=== PATIENT | male | born 1975 | race Caucasian/White ===

== ENCOUNTER 2018-08-24 16:14 | Emergency (ER) | payer OTHER ==
[~2018-08-24] VITALS: Ht 182.9 cm; Wt 108.9 kg
[2018-08-24 16:20] VITALS: BP_SYST 133
[2018-08-24 17:52] LABS: BILIRUBIN,URINE NEGATIVE (NEGATIVE); CLARITY/URINE CLEAR (CLEAR); COLOR,URINE YELLOW (YELLOW); GLUCOSE,URINE NEGATIVE (NEGATIVE); KETONES,URINE NEGATIVE (NEGATIVE); LEUKOCYTE ESTERASE ,URINE NEGATIVE (NEGATIVE); NITRITE, URINE NEGATIVE (NEGATIVE); PH,URINE 5.5 (5.0-8.0); PROTEIN URINE NEGATIVE (NEGATIVE); UROBILINOGEN,URINE 0.2 (0.2-1.0)
[2018-08-24 17:55] LABS: BLOOD, URINE TRACE (NEGATIVE)
[2018-08-24 17:57] LABS: BASOPHILS % (AUTO) 0.5 % (0.0-2.0); EOSINOPHILS # (AUTO) 0.2 K/uL (0.0-0.4); EOSINOPHILS % (AUTO) 1.6 % (0.0-4.0); HEMATOCRIT 48.4 % (36-54); HEMOGLOBIN 16.8 g/dL (14.0-18.0); LYMPHOCYTES # (AUTO) 1.7 K/uL (1.0-5.5); LYMPHOCYTES % (AUTO) 17.4 % (20.5-51.5); MEAN CORPUSCULAR HEMOGLOBIN 34 pg (27-31); MEAN CORPUSCULAR HGB CONC 35 % (32-36); MEAN CORPUSCULAR VOLUME 97 fL (79.0-98.0); MONOCYTES # (AUTO) 0.6 K/uL (0.0-1.0); MONOCYTES % (AUTO) 6.4 % (1.7-9.3); NEUTROPHILS # (AUTO) 7.1 K/uL (1.8-7.7); NEUTROPHILS % (AUTO) 74.1 % (40.0-70.0); PLATELET COUNT (AUTO) 282 K/uL (130-430); RED BLOOD CELL COUNT(AUTO) 4.99 MIL/uL (4.2-6.2); RED CELL DISTRIBUTION WIDTH 12.4 % (9.0-15.0); WHITE BLOOD COUNT (AUTO) 9.6 K/uL (4.8-10.8)
[2018-08-24 18:03] LABS: CREATININE 0.94 mg/dL (0.55-1.30)
[2018-08-24 18:05] LABS: PROTHROMBIN TIME 9.8 SECS (9.5-12.5)
[2018-08-24 18:06] LABS: BACTERIA,URINE FEW /HPF (None Seen); WBC,URINE 0-3 /HPF (0-3)
[2018-08-24 18:07] LABS: ALBUMIN 3.7 g/dL (3.4-4.8); TOTAL BILIRUBIN 0.5 mg/dL (0.0-1.0)
[2018-08-24] MEDS ORDERED: KETOROLAC TROMETHAMINE 30 MG VIAL IM ONE (21:30)
[2018-08-24 22:00] VITALS: BP_SYST 133
== END 2018-08-24 22:00 | disposition home or self-care (01) ==
LOC: SED 16:14
DX: K80.20 Calculus of gallbladder without cholecystitis without obstruction (principal); R03.0 Elevated blood-pressure reading, without diagnosis of hypertension
CPT/HCPCS: 36415; 71045; 74176; 76700; 80053; 81000; 83605; 83690; 85025; 85610; 87040; 93005; 96374; 99284; J1885

== ENCOUNTER 2018-08-25 09:18 | Inpatient (IN) | payer OTHER ==
[~2018-08-25] VITALS: Ht 182.9 cm; Wt 109.8 kg
[2018-08-25 09:18] VITALS: BP_SYST 136
--- NOTE | 2018-08-25 09:18 | NUR ---
BROUGHT BACK TO BED #6 AND TRIAGED. REPORT GIVEN TO SAUNDRA
--- NOTE | 2018-08-25 09:35 | NUR ---
PATIENT CAME IN COMPLAINING OF PAIN 01/04 THAT STARTED ABOUT 5 DAYS AGO. PAIN IS IN RIGHT UPPER ABD THAT RADIATES TO BACK. PATIENT WAS HERE YESTERDAY AND SENT HOME WITH [facility]. PATIENT STATES IT DID NOT HELP. PATIENT COMPLAINING OF NAUSEA BUT NO VOMITING. PATIENT STATES THEY TOLD HIM HE HAS GALL STONES BUT NO INFECTION. PATIENT ALERT AND ORIENTED X4.
--- NOTE | 2018-08-25 09:40 | NUR ---
# 20 gauge angiocath placed to RIGHT AC. Use of asceptic technique. Opsite placed over site. Blood return noted. Blood for lab drawn from site. Flushed with 10 cc of normal saline. No evidence of infiltration noted. Patient tolerated well.
--- NOTE | 2018-08-25 09:52 | NUR ---
ER Dr. MILNER at bedside examining patient.
--- NOTE | 2018-08-25 09:53 | NUR ---
DR MILNER AT BEDSIDE FOR EVALUATION
[2018-08-25] MEDS ORDERED: ONDANSETRON HCL 4 MG/2 ML VIAL IVP ONE (10:00)
[2018-08-25] MEDS ORDERED: MORPHINE 4 MG/ML INJ. SYRINGE IVP ONE (10:00)
[2018-08-25] MEDS ORDERED: NACL 0.9% 1,000 ML IV ONE ×2 (10:00→11:45)
[2018-08-25 10:09] LABS: BASOPHILS % (AUTO) 0.3 % (0.0-2.0); EOSINOPHILS # (AUTO) 0.1 K/uL (0.0-0.4); EOSINOPHILS % (AUTO) 0.6 % (0.0-4.0); HEMOGLOBIN 16.5 g/dL (14.0-18.0); LYMPHOCYTES # (AUTO) 1.2 K/uL (1.0-5.5); LYMPHOCYTES % (AUTO) 10.9 % (20.5-51.5); MEAN CORPUSCULAR HEMOGLOBIN 33 pg (27-31); MEAN CORPUSCULAR HGB CONC 34 % (32-36); MEAN CORPUSCULAR VOLUME 97 fL (79.0-98.0); MONOCYTES # (AUTO) 0.7 K/uL (0.0-1.0); MONOCYTES % (AUTO) 6.3 % (1.7-9.3); NEUTROPHILS # (AUTO) 9.1 K/uL (1.8-7.7); NEUTROPHILS % (AUTO) 81.9 % (40.0-70.0); PLATELET COUNT (AUTO) 298 K/uL (130-430); RED BLOOD CELL COUNT(AUTO) 4.95 MIL/uL (4.2-6.2); RED CELL DISTRIBUTION WIDTH 12.6 % (9.0-15.0); WHITE BLOOD COUNT (AUTO) 11.1 K/uL (4.8-10.8)
[2018-08-25 10:12] LABS: CREATININE 1.01 mg/dL (0.55-1.30); POTASSIUM 4.4 mmol/L (3.5-5.1)
[2018-08-25 10:17] LABS: ALBUMIN 3.9 g/dL (3.4-4.8); TOTAL BILIRUBIN 0.6 mg/dL (0.0-1.0)
--- NOTE | 2018-08-25 11:14 | NUR ---
PATIENT PACING IN ROOM AND CROUCHING DOWN IN SEVERE PAIN. MADE AWARE.
[2018-08-25] MEDS ORDERED: fentaNYL CITRATE/PF 100 MCG/2 ML AMP IVP ONE (11:15)
--- NOTE | 2018-08-25 11:35 | NUR ---
Patient will be admitted to care of dr Thompson. Admitted to med surge unit. Will go to room 124B. Belongings list completed. Summary report printed. Report will be given at bedside.
--- NOTE | 2018-08-25 11:41 | NUR ---
Medication reconciliation completed with information provided by patient. Any prior medication reconciliation on file was reviewed and corrected.
--- NOTE | 2018-08-25 11:44 | NUR ---
PATIENT STILL COMPLAINING OF SEVERE PAIN. DR PAUL.
[2018-08-25] MEDS ORDERED: HYDROmorphone 1 MG INJ. 1 MG/ML AMPUL IVP PRN (11:45)
[2018-08-25] MEDS ORDERED: HYDROmorphone 2 MG/ML VIAL IVP ONE (11:45)
[2018-08-25] MEDS ORDERED: HYDROmorphone 2 MG/ML VIAL ONE (12:07)
--- NOTE | 2018-08-25 12:25 | NUR ---
Transfered to [facility]. IV present no sign or symptom of infiltration.
--- NOTE | 2018-08-25 12:29 | NUR ---
ADMIT NOTE Received pt from ER to the floor with a diagnosis of abdominal pain. Admission process initiated. patient oriented to pain management, safety and call light-teach back done.
--- NOTE | 2018-08-25 12:30 | NUR ---
CONSULTATION PAGED/CALLED Reason for Consultation: [] abdominal pain Person Who was Notified: [] Terry. CARRINGTON's DIRECTOR SPOKE TO DR FRANK Consulting Physician: [] DR FRANK Tube Drawing Supervisor Specialty: [] GEN SURGEON Ordering Physician: [] DR MACDONALD
[2018-08-25 12:53] VITALS: BP_SYST 133
--- NOTE | 2018-08-25 13:10 | NUR ---
INITIAL NOTE RECEIVED PT IN BED, NO S/S OF DISTRESS OR SOB NOTED, PT HAS C/O PAIN 6/10 RIGHT LOWER ABD THAT RADIATES TO BACK. MADE PT AWARE THAT WE ARE WAITING FOR [employer] TO CALL US BACK TO SEE IF PT WILL HAVE TEST DONE TODAY. IV CATHETER PATENT, SALINE LOCK. BED AT LOWEST POSITION, CALL LIGHT WITHIN REACH, WILL CONTINUE TO MONITOR PT FOR ANY CHANGES. FALL AND SAFETY PRECAUTIONS IN PLACE.
--- NOTE | 2018-08-25 13:15 | NUR ---
DAKOTA GLEASON SPOKE WITH KARMA FROM [facility] AND SHE STATED THEY WILL DO THE HIDA SCAN TONIGHT AT 7PM. PER KARMA, PT TO HAVE ONE DOSE OF DILAUDID ONE MORE TIME BEFORE PROCEDURE.
[2018-08-25] MEDS: HYDROmorphone 2 MG/ML VIAL IVP PRN ×2 (13:20→22:02)
[2018-08-25] MEDS: D5NS 1,000 ML IV SCH (13:21)
--- NOTE | 2018-08-25 14:30 | NUR ---
ROUNDS PT IN BED, NO S/S OF DISTRESS OR SOB NOTED, PT HAS NO C/O PAIN AT THIS TIME, PT IN STABLE CONDITION, PT RESTING COMFORTABLY, WILL CONTINUE TO MONITOR PT FOR ANY CHANGES.
[2018-08-25] MEDS ORDERED: KETOROLAC TROMETHAMINE 30 MG VIAL IVP PRN (15:15)
--- NOTE | 2018-08-25 15:15 | NUR ---
NUCLEAR MED SPOKE WITH DANIELE FROM RADIOLOGY THAT SPOKE WITH KARMA ABOUT THE USE OF TORADOL FOR PAIN SINCE PT IS STILL HAVING PAIN, PER DANIELE IT IS NOT A NARCOTIC SO OK TO GIVE.
--- NOTE | 2018-08-25 15:19 | NUR ---
DR MONIKA RICHMOND MD. INFORMED OF PATIENT BEING IN SEVERE PAIN. ORDERED THE HIDA SCAN BUT BUT [facility] WANTS TO MANAGE PAIN. TORADOL IV ORDERED.
[2018-08-25] MEDS ORDERED: KETOROLAC TROMETHAMINE 30 MG VIAL ONE ×2 (15:27→18:55)
--- NOTE | 2018-08-25 16:05 | NUR ---
ROUNDS PT IN BED, NO S/S OF DISTRESS OR SOB NOTED, PT HAS NO C/O PAIN AT THIS TIME, PT IN STABLE CONDITION, PT RESTING COMFORTABLY, WILL CONTINUE TO MONITOR PT FOR ANY CHANGES. PT TALKING TO VISITORS.
[2018-08-25 16:51] VITALS: BP_SYST 147
--- NOTE | 2018-08-25 17:46 | NUR ---
GEN SURGEON DR FRANK WAS PAGED AGAIN, RE: PT HAS SEVERE PAIN. SPOKE TO FEDE.
--- NOTE | 2018-08-25 17:47 | NUR ---
CALL DR MONIKA BRADSHAW, AWAITING CALL BACK TO LET HIM KNOW THAT PATIENT IS HAVING A LOT OF ABD PAIN, AWAITING FOR THE HIDA SCAN AT 7 PM. Addendum: 08/25/18 at 1802 by Trinh Knight RN MD CALLED BACK AND GAVE NEW ORDERS FOR TORADOL 30 MG IVP X1 NOW. SPOKE WITH PT AND HE WILL HOLD OFF UNTIL HE CANT ANYMORE BECAUSE HE HAS THE HIDA SCAN AT 7 PM.
[2018-08-25] MEDS ORDERED: KETOROLAC TROMETHAMINE 30 MG VIAL IVP ONE (18:00)
--- NOTE | 2018-08-25 18:15 | NUR ---
CLOSING NOTE PT IN BED, NO S/S OF DISTRESS OR SOB NOTED, PT HAS C/O PAIN 6/10 RIGHT LOWER ABD THAT RADIATES TO BACK. MADE PT AWARE THAT WE ARE WAITING FOR HIDA SCAN TO COME PICK HIM UP AND HE HAS TORADOL X1 30 MP IVP WHEN NEEDED, PT STATED HE WILL CALL WHEN HE NEEDS IT. IV CATHETER PATENT, RUNNING FLUIDS ORDERED. BED AT LOWEST POSITION, CALL LIGHT WITHIN REACH, WILL ENDORSE CARE OF PT TO INCOMING NURSE. FALL AND SAFETY PRECAUTIONS IN PLACE.
--- NOTE | 2018-08-25 18:51 | NUR ---
PAIN MEDICATION ADMINISTERED TIMES ONE DOSE OF TORADOL 30MG IM FOR PAIN ORDERED. PT KNOWS THAT HE WILL HAVE HIDA SCAN AT 7 PM TONIGHT.
[2018-08-25 19:00] VITALS: BP_SYST 142
--- NOTE | 2018-08-25 19:00 | NUR ---
change of shift.pt.presents abdomen pain;layla had medicated the pt.toradol;30mg ivp.pt.is scheduled to submit to hida-scan;hida scan nsg is present;apprising us that the pt.is to be sent w/in 15mins.iv access iv fluids;on hold.
[2018-08-25 20:00] VITALS: BP_SYST 110; BP_SYST 142
--- NOTE | 2018-08-25 20:00 | NUR ---
pt.remains off the unit @this hour;2/t hida scan.
--- NOTE | 2018-08-25 20:30 | NUR ---
pt.had returned to the unit;post.hida-scan.
--- NOTE | 2018-08-25 21:00 | NUR ---
pt.removed from the unit;2/t 2nd part;hida scan per the tech. telephoned the sdch. i apprised that the pt,has submitted to the 2nd section of the hida-scan study.i have no results.@this hour. has ordered to call w/the results of the hida-scan.if the study is+:requires surgery:possible surgery in the am;08/26/18.
--- NOTE | 2018-08-25 22:26 | NUR ---
PAGED DR. MACDONALD (DR. VICENTE ISOLATION WASHER) REGARDING PATIENT YULISSA REHMAN FOR ORDERS.
--- NOTE | 2018-08-25 22:30 | NUR ---
returned the page.i have apprised of the pt's status;severe pain level.agitation/restless. nausea. had ordered dilaudid;2mg ivp q-3hrs;frequency changed.zofran;4mg ivp q-6hrs;nausea.ativan: 1mg ivp x1.i have apprised the pt.of the orders.
[2018-08-25] MEDS ORDERED: LORazepam 2 MG/ML VIAL IVP ONE (23:00)
[2018-08-25] MEDS ORDERED: ONDANSETRON HCL 4 MG/2 ML VIAL IM PRN (23:00)
--- NOTE | 2018-08-25 23:30 | NUR ---
i have administered ativan:1mg ivp.i have administered zofran:4mg ivp..
[2018-08-26] VITALS (7 sets, daily range): BP systolic 104–134
--- NOTE | 2018-08-26 | NUR ---
pt.assessed.v/s assessed.values w/in normal limits.pt.presents quiescent affect;calm,resting.arousable,. iv fluids infusing.general status stable.respiratory status stable.pt.capable to reposition self.call light/telephone placed w/in the reach of the pt.
[2018-08-26] MEDS: HYDROmorphone 2 MG/ML VIAL IVP PRN ×3 (00:27→12:02)
--- NOTE | 2018-08-26 00:30 | NUR ---
py.had requested medication;pain.i have administered dilaudid;2mg ivp.no additional requested posited@this hour. presented upon the ubntispoke w/the pt.i have presented the hida-scan results to .has order surgery in the am:0900a.08/26/18.labs ordered.
[2018-08-26] MEDS: D5NS 1,000 ML IV SCH ×2 (01:05→03:29)
--- NOTE | 2018-08-26 02:00 | NUR ---
pt.assessed.pt.presents quiescent affect;clam.somnolent,general status stable.respiratory status stable. pt.capable to reposition self.iv fluids infusing.cvall light/telephone w/in the reach of the pt.
--- NOTE | 2018-08-26 03:30 | NUR ---
pt.had requested medication;pain.i have administered dilaudid;2mg ivp.to f/u re;pain medication efficacy per pain mgx protocol.i have changed the iv fluids bag;d5/ns @75ml/hr.
--- NOTE | 2018-08-26 04:00 | NUR ---
pt.assessed.pt.presents quiescent affect;calm,somnolent.iv acces;intact;patent;iv fluids infusing. general status stable.respiratory status stable.pt.capable to reposition self.call light/telephone w/in the reach of the pt.
[2018-08-26 07:11] LABS: BASOPHILS % (AUTO) 0.2 % (0.0-2.0); EOSINOPHILS % (AUTO) 0.2 % (0.0-4.0); HEMATOCRIT 43.5 % (36-54); HEMOGLOBIN 14.9 g/dL (14.0-18.0); LYMPHOCYTES # (AUTO) 1.3 K/uL (1.0-5.5); LYMPHOCYTES % (AUTO) 9.8 % (20.5-51.5); MEAN CORPUSCULAR HEMOGLOBIN 33 pg (27-31); MEAN CORPUSCULAR HGB CONC 34 % (32-36); MEAN CORPUSCULAR VOLUME 97 fL (79.0-98.0); MONOCYTES # (AUTO) 1.2 K/uL (0.0-1.0); MONOCYTES % (AUTO) 8.6 % (1.7-9.3); NEUTROPHILS # (AUTO) 11.1 K/uL (1.8-7.7); NEUTROPHILS % (AUTO) 81.2 % (40.0-70.0); PLATELET COUNT (AUTO) 259 K/uL (130-430); RED BLOOD CELL COUNT(AUTO) 4.47 MIL/uL (4.2-6.2); RED CELL DISTRIBUTION WIDTH 12.4 % (9.0-15.0); WHITE BLOOD COUNT (AUTO) 13.6 K/uL (4.8-10.8)
[2018-08-26 07:14] LABS: CLARITY/URINE CLEAR (CLEAR); COLOR,URINE YELLOW (YELLOW); GLUCOSE,URINE NEGATIVE (NEGATIVE); PROTEIN URINE TRACE (NEGATIVE)
[2018-08-26 07:15] LABS: BILIRUBIN,URINE 1+ (NEGATIVE); BLOOD, URINE 1+ (NEGATIVE); KETONES,URINE TRACE (NEGATIVE); LEUKOCYTE ESTERASE ,URINE NEGATIVE (NEGATIVE); NITRITE, URINE NEGATIVE (NEGATIVE)
[2018-08-26 07:18] LABS: WBC,URINE 0-3 /HPF (0-3)
[2018-08-26 07:19] LABS: BACTERIA,URINE FEW /HPF (None Seen); MUCUS,URINE 1+ /LPF (None Seen)
[2018-08-26 07:30] LABS: PROTHROMBIN TIME 10.1 SECS (9.5-12.5)
--- NOTE | 2018-08-26 07:30 | NUR ---
Opening Note received bedside SBAR report from restaurant shift leader RN, patient resting in bed, no acute distress noted, patients family at bedside, educated patient on use of call light and asked to call for assistance, patient verbalized understanding, call light in reach, educted patient on use of bed alarm for patient safety, patient refusing bed alarm, bed in low and locked position.
[2018-08-26 07:39] LABS: CALCIUM 8.4 mg/dL (8.4-11.0); CREATININE 0.97 mg/dL (0.55-1.30)
[2018-08-26 07:40] LABS: ALBUMIN 3.1 g/dL (3.4-4.8); TOTAL BILIRUBIN 0.9 mg/dL (0.0-1.0)
--- NOTE | 2018-08-26 08:05 | NUR ---
Fever patient temp 102.6 oral, paged Dr. Alaniz workplace rehabilitation officer for Dr. Thompson for orders. Addendum: 08/26/18 at 0916 by Latanya Sebastian RN @ [phone] Dominguez, new orders received, verified with read back.
[2018-08-26] MEDS ORDERED: ACETAMINOPHEN 650 MG SUPP.RECT RC ONE (09:00)
--- NOTE | 2018-08-26 09:15 | NUR ---
to OR patient taken to OR via gurney, no acute distress noted, all belongings left with patients sister.
[2018-08-26] MEDS ORDERED: PIPERACILLIN/TAZOBACTAM 3.375 GM/ D5W 50 ML IV ONE ×2 (09:30)
[2018-08-26] MEDS ORDERED: fentaNYL CITRATE/PF 100 MCG/2 ML AMP IVP PRN ×2 (10:00)
[2018-08-26] MEDS ORDERED: ONDANSETRON HCL 4 MG/2 ML VIAL IVP PRN ×2 (10:00→11:00)
[2018-08-26] MEDS ORDERED: KETOROLAC TROMETHAMINE 30 MG VIAL IVP PRN (10:00)
--- NOTE | 2018-08-26 10:13 | NUR ---
CONSULTATION PAGED REASON FOR CONSULTATION:FEVER WAS CONSULT CALLED?Y PERSON WHO WAS NOTIFIED:HERRERA CONSULTING PHYSICIAN:ZOHRA YOUSIF ( SPRIGGER) BROOMMAKER SPECIALTY:ID BROOMMAKER PHONE NUMBER:[phone] REQUESTING PHYSICIAN:TANESHA CALI
--- NOTE | 2018-08-26 10:35 | NUR ---
Physician Rounds Rounds with Dr. Alaniz, informed him of patients temp 102.6, HR 102, and WBC 13.6, informed him that 650 tylenol was given before patient was taken to OR and that zosyn was ordered in OR, new antibiotic order received, verified with read back.
[2018-08-26] MEDS ORDERED: ACETAMINOPHEN 325 MG TABLET PO PRN (10:45)
[2018-08-26] MEDS ORDERED: SEVOFLURANE 15 MIN GAS INH ONE (10:55)
[2018-08-26] MEDS ORDERED: NS 1000 ML IV.SOLN IV ONE (10:55)
[2018-08-26] MEDS ORDERED: BUPIVACAINE /PF 0.5% 30 ML VIAL ONE (10:55)
[2018-08-26] MEDS ORDERED: MIDAZOLAM HCL 5 MG/ML VIAL (VERSED) IV ONE (10:55)
[2018-08-26] MEDS ORDERED: NS IRRIG SOLN 1000 ML IR ONE (10:55)
[2018-08-26] MEDS ORDERED: ROCURONIUM BROMIDE 10 MG/ML (ZEMURON) ONE (10:55)
[2018-08-26] MEDS ORDERED: PROPOFOL 200MG/ 20ML VIAL (DIPRIVAN) IV ONE (10:55)
[2018-08-26] MEDS ORDERED: LR 1,000 ML IV.SOLN IV ONE (10:55)
[2018-08-26] MEDS ORDERED: ONDANSETRON HCL 4 MG/2 ML VIAL ONE (10:55)
[2018-08-26] MEDS ORDERED: fentaNYL CITRATE/PF 100 MCG/2 ML AMP ONE (10:55)
[2018-08-26] MEDS ORDERED: BUPIVACAINE /EPINEPHRINE/PF 0.25% 30 ML VIAL INJ ONE (10:55)
[2018-08-26] MEDS ORDERED: KETOROLAC TROMETHAMINE 30 MG VIAL ONE (10:55)
[2018-08-26] MEDS ORDERED: LIDOCAINE 2%, 20 ML MDV ONE (10:55)
[2018-08-26] MEDS ORDERED: PHENYLEPHRINE HCL 10 MG/ML VIAL (NEOSYNEPHRINE) ONE (10:55)
[2018-08-26] MEDS ORDERED: HYDROcodone/ACETAMIN 5-325 MG TAB (NORCO/ VICODIN) PO PRN (11:00)
--- NOTE | 2018-08-26 11:56 | NUR ---
back from OR patient brought back to room from OR via gurney, no acute distress noted, respirations even and unlabored, patients family at the bedside.
[2018-08-26] MEDS: NACL 0.9% 1,000 ML IV SCH ×2 (12:11→20:46)
--- NOTE | 2018-08-26 12:16 | NUR ---
Pain Management/Medication patient complaint of pain, educated patient on use and side effects of PRN dilaudid including the potential for respiratory depression, patient verbalized understanding, tolerated medication administration well, medication administration witnessed by Patria MALDONADO, no acute distress noted, patient provided with clear liquid lunch tray, family at bedside.
--- NOTE | 2018-08-26 13:17 | NUR ---
RN Rounds patient resting in bed, patient reports pain is controlled, respirations even and unlabored, no acute distress noted, patients family at bedside.
[2018-08-26] MEDS: PIPERACILLIN/TAZO 3.375/DEX-IS 50 ML IV SCH ×2 (14:12→20:47)
--- NOTE | 2018-08-26 14:20 | NUR ---
Ambulated to bathroom non-slip footwear provided, assisted patient to ambulate to bathroom, steady gait noted, patient voided x1, assisted patient to ambulate back to bed, patient resting in bed, patient states that pain is controlled at this time, no acute distress noted.
--- NOTE | 2018-08-26 14:38 | NUR ---
DC Planning: updated pt's status to dayna Langford at [facility] # [phone], the pt had [facility] this am. faxing clinical info, FS, HP to # [phone] attn: goran Downing per request.
[2018-08-26] MEDS: HYDROmorphone 1 MG INJ. 1 MG/ML AMPUL IVP PRN ×3 (15:16→21:20)
--- NOTE | 2018-08-26 15:25 | NUR ---
Pain Management/Medication patient complaint of pain, educated patient on use and side effects of PRN pain medication, patient verbalized understanding, tolerated medication administration well, no acute distress noted, administration witnessed by Perla Flores, no additional needs at this time.
--- NOTE | 2018-08-26 15:55 | NUR ---
Patient went outside to smoke educated patient on risks of smoking, smoking cessation information provided, smoking waiver signed and in chart, patient verbalized understanding, patient went outside to smoke, accompanied by WELDER AND FITTER.
--- NOTE | 2018-08-26 16:10 | NUR ---
patient resting in bed patient back in bed, no acute distress noted, patients family at bedside.
--- NOTE | 2018-08-26 16:50 | NUR ---
Spoke with Physician spoke with Dr. Velasquez, informed him of WBC 13.6, temp earlier this morning of 102.6 and HR 102, informed him of current vital signs, new medication orders received, verified with read back, per Dr. Velasquez he will be in tonight or tomorrow to see the patient.
[2018-08-26] MEDS: ACETAMINOPHEN 325 MG TABLET PO PRN (18:30)
--- NOTE | 2018-08-26 19:11 | NUR ---
Closing Note bedside SBAR report given to receiving RN, patient resting in bed, no acute distress noted, surgical dressings to abdomen clean, dry, and intact, abdominal binder in place, educated patient on use of call light and asked to call for assistance, patient verbalized understanding, call light in reach, bed in low and locked position, care endorsed to date night sitter RN.
--- NOTE | 2018-08-26 19:30 | NUR ---
Initial note: Received report from dayshift RN. Patient is resting in bed, no distress. Breathing is even and unlabored on room air. IV site to right AC is patent benign, receiving IV fluids well. Temperature at this time is 99.7 F. Call light is with patient. Will continue monitoring.
[2018-08-26] MEDS: metroNIDAZOLE 500 mg/NS 100 ML IV SCH (21:20)
--- NOTE | 2018-08-26 21:24 | NUR ---
Pain: Patient is complaining of severe abdominal pain. Administered PRN Dilaudid 1 MG IVP via patient's right AC IV site. Education provided regarding indications and side effects, understanding verbalized. Will continue monitoring.
[2018-08-27] VITALS (7 sets, daily range): BP systolic 111–142
[2018-08-27] MEDS: HYDROmorphone 1 MG INJ. 1 MG/ML AMPUL IVP PRN ×8 (00:34→22:42)
[2018-08-27] MEDS: ACETAMINOPHEN 325 MG TABLET PO PRN ×4 (00:35→22:59)
--- NOTE | 2018-08-27 00:37 | NUR ---
Pain: Patient is awake, complaining of severe abdominal pain. PRN Dilaudid 1 MG IVP indicated. Administered medication via patient's right AC IV site. Will continue monitoring.
[2018-08-27] MEDS: PIPERACILLIN/TAZO 3.375/DEX-IS 50 ML IV SCH ×4 (03:54→21:31)
--- NOTE | 2018-08-27 03:54 | NUR ---
Pain: Patient is awake, complaining of pain 9/10 to abdomen. Administered PRN Dilaudid 1 MG to patient's right AC IV site. Will continue monitoring.
[2018-08-27 06:11] LABS: BASOPHILS % (AUTO) 0.3 % (0.0-2.0); EOSINOPHILS % (AUTO) 0.1 % (0.0-4.0); HEMATOCRIT 38.4 % (36-54); LYMPHOCYTES # (AUTO) 1.2 K/uL (1.0-5.5); MEAN CORPUSCULAR HEMOGLOBIN 33 pg (27-31); MEAN CORPUSCULAR HGB CONC 34 % (32-36); MEAN CORPUSCULAR VOLUME 99 fL (79.0-98.0); MONOCYTES % (AUTO) 8.4 % (1.7-9.3); NEUTROPHILS % (AUTO) 81.2 % (40.0-70.0); PLATELET COUNT (AUTO) 221 K/uL (130-430); RED BLOOD CELL COUNT(AUTO) 3.89 MIL/uL (4.2-6.2); RED CELL DISTRIBUTION WIDTH 12.3 % (9.0-15.0); WHITE BLOOD COUNT (AUTO) 12.3 K/uL (4.8-10.8)
[2018-08-27 06:36] LABS: ALBUMIN 2.6 g/dL (3.4-4.8); CALCIUM 7.9 mg/dL (8.4-11.0); CREATININE 1.08 mg/dL (0.55-1.30); POTASSIUM 3.8 mmol/L (3.5-5.1); TOTAL BILIRUBIN 1.1 mg/dL (0.0-1.0)
--- NOTE | 2018-08-27 06:59 | NUR ---
Closing note: Patient is awake in bed. Administered PRN Dilaudid 1 MG for abdominal pain 9/10 and PRN Tylenol 650 MG for fever 100.8 F. IV fluids infusing as ordered, site is patent and benign. All needs met. Will endorse to carmen RN.
[2018-08-27] MEDS: NACL 0.9% 1,000 ML IV SCH ×3 (07:01→22:38)
--- NOTE | 2018-08-27 07:25 | NUR ---
Opening note Patient resting in bed at this time, no complaints of pain, temp of 99.8. Ice packs provided. No SOB noted, lung sounds clear, bowel sounds active. Educated patient on incentive spirometer use, and reason for use, and how often to use, patient verbalized understanding, return demonstration by patient, result of 2000 ml inspired. On safety precautions, educated patient on the call light system, verbalized understanding. Bed alarm on, bed in lowest position, call light within reach. Will continue to monitor.
--- NOTE | 2018-08-27 10:15 | NUR ---
Pain patient complained of abdominal pain, PRN medications given as ordered, effective. Reminded patient to walk and use incentive spirometer, patient verbalized understanding. Will continue to monitor.
[2018-08-27] MEDS: metroNIDAZOLE 500 mg/NS 100 ML IV SCH ×2 (10:35→22:38)
--- NOTE | 2018-08-27 13:10 | NUR ---
Pain Patient complained of abdominal pain, PRN medication given as ordered. Educated patient to ambulate as much as possible, patient verbalized understanding.
--- NOTE | 2018-08-27 16:30 | NUR ---
Pain/ Temp Patient complained of abdominal pain PRN pain medication given as ordered. Patient also noted with temp of 100.1, Tylenol given as ordered, ice packs provided.
--- NOTE | 2018-08-27 17:25 | NUR ---
Paged Dr. Otero regarding Sepsis protocol.
--- NOTE | 2018-08-27 18:15 | NUR ---
Second page to Dr. Otero regarding Sepsis protocol.
--- NOTE | 2018-08-27 18:23 | NUR ---
Closing note Patient resting in bed at this time, no complaints of pain, temp of 100.1, awaiting for Dr. Otero call back. Ice packs provided. No SOB noted, lung sounds clear, bowel sounds active. Educated patient on incentive spirometer use, and reason for use, and how often to use, patient verbalized understanding, return demonstration by patient, result of 2000 ml inspired. On safety precautions, educated patient on the call light system, verbalized understanding. Bed alarm on, bed in lowest position, call light within reach. Patient in stable condition, All needs met at this time.
--- NOTE | 2018-08-27 18:41 | NUR ---
Paged Dr. Wall regarding Sepsis protocol, stated to call back in ten minutes, following up.
--- NOTE | 2018-08-27 18:54 | NUR ---
Sepsis protocol Spoke with Dr. Wall, new orders received, no orders for fluid resuscitation, MD stated continue current fluid orders.
--- NOTE | 2018-08-27 19:30 | NUR ---
Initial note: Received report from dayshift RN. Patient is resting in bed, no distress. Breathing is even and unlabored on room air. IV site to right AC is patent benign, receiving IV fluids well. Call light is with patient. Will continue with plan of care.
--- NOTE | 2018-08-27 19:41 | NUR ---
Pain: Patient was complaining of severe abdominal pain. Administered PRN Dilaudid 1 MG IVP via patient's right AC IV site. Educated patient regarding indications and side effects, understanding verbalized. Will continue monitoring.
[2018-08-27 22:38] LABS: BILIRUBIN,URINE NEGATIVE (NEGATIVE); CLARITY/URINE CLEAR (CLEAR); COLOR,URINE YELLOW (YELLOW); GLUCOSE,URINE NEGATIVE (NEGATIVE); KETONES,URINE NEGATIVE (NEGATIVE); LEUKOCYTE ESTERASE ,URINE NEGATIVE (NEGATIVE); NITRITE, URINE NEGATIVE (NEGATIVE); PH,URINE 6.5 (5.0-8.0); PROTEIN URINE NEGATIVE (NEGATIVE); UROBILINOGEN,URINE 0.2 (0.2-1.0)
[2018-08-27 22:42] LABS: BLOOD, URINE TRACE (NEGATIVE)
--- NOTE | 2018-08-27 22:45 | NUR ---
Pain: Patient is awake, complained of severe abdominal pain. PRN Dilaudid 1 MG IVP administered via patient's right AC IV site. Will continue monitoring.
[2018-08-27 23:01] LABS: BACTERIA,URINE FEW /HPF (None Seen); WBC,URINE 0-3 /HPF (0-3)
[2018-08-28] MEDS: HYDROmorphone 1 MG INJ. 1 MG/ML AMPUL IVP PRN ×3 (01:44→08:33)
--- NOTE | 2018-08-28 01:49 | NUR ---
Pain: PRN Dilaudid 1 MG IVP administered via patient's right AC IV site for patient's complaint of severe abdominal pain. Education provided regarding indications and side effects, understanding verbalized. Will continue monitoring.
[2018-08-28] MEDS: PIPERACILLIN/TAZO 3.375/DEX-IS 50 ML IV SCH ×4 (03:35→20:32)
--- NOTE | 2018-08-28 05:58 | NUR ---
Closing note: Patient is resting in bed, no distress. IV fluids infusing well to right AC IV site. PRN Dilaudid 1 MG administered for complaint of severe pain to abdomen, patient reports that pain is at tolerable level at this time. All needs met. Safety and fall precautions in place. Will endorse to carmen RN.
--- NOTE | 2018-08-28 07:40 | NUR ---
Opening note Patient resting in bed at this time, no complaints of pain, temp of 99.3. Ice packs provided. No SOB noted, lung sounds clear, bowel sounds active. Educated patient on incentive spirometer use, and reason for use, and how often to use, patient verbalized understanding, return demonstration by patient, result of 2000 ml inspired. Educated patient to ambulate in the hallway, patient states he has been ambulating in the room. On safety precautions, educated patient on the call light system, verbalized understanding. Bed alarm on, bed in lowest position, call light within reach. Will continue to monitor.
--- NOTE | 2018-08-28 09:00 | NUR ---
Pain Patient complained of abdominal pain, Dilaudid given as ordered, effective. No further complaints of pain noted. Patient resting comfortably.
[2018-08-28] MEDS: metroNIDAZOLE 500 mg/NS 100 ML IV SCH (10:04)
[2018-08-28] MEDS: OXYCODONE/ACETAMINOPHEN *10*mg/325 mg TABLET PO PRN ×3 (12:04→20:31)
--- NOTE | 2018-08-28 12:18 | NUR ---
Diet Called Dr. Rodas, new orders to advance diet to full liquid noted and carried out.
[2018-08-28] MEDS: NACL 0.9% 1,000 ML IV SCH (13:18)
[2018-08-28 13:34] VITALS: BP_SYST 126
--- NOTE | 2018-08-28 14:00 | NUR ---
Ambulating Patient ambulated in the hallway from room to nursing station , and back to room 3 times. Tolerating well, no dizziness noted.
[2018-08-28 16:11] VITALS: BP_SYST 117
--- NOTE | 2018-08-28 16:40 | NUR ---
Pain Patient resting in bed, complained of abdominal pain on incision site, PRN medication given as ordered. No adverse side effects noted.
--- NOTE | 2018-08-28 18:33 | NUR ---
Closing note Patient resting in bed at this time, no complaints of pain, No SOB noted, lung sounds clear, bowel sounds active. Patient states he has been passing gas but no bowel movement yet. Educated patient on incentive spirometer use, and reason for use, and how often to use, patient verbalized understanding, return demonstration by patient, result of 2000 ml inspired. Encouraged patient to ambulate, patient verbalized understanding, patient ambulated down the hallway to nursing station and back to bed. On safety precautions, educated patient on the call light system, verbalized understanding, bed in lowest position, call light within reach. Patient in stable condition, All needs met at this time.
--- NOTE | 2018-08-28 19:20 | NUR ---
Opening notes Patient resting comfortably in bed. No signs of distress noted. Breathing is even and unlabored. IV is patent and intact, infusing fluids. Educated patient on incentive spirometer. Patient able to inspire 2000 ml. No needs at this time. Call light with the patient. Safety precautions in place.
--- NOTE | 2018-08-28 20:30 | NUR ---
Pain medications given. Educated the action and side effects of medications. Patient verbalized understanding. No other needs. Call light with the patient. Safety precautions in place.
[2018-08-28 20:33] VITALS: BP_SYST 124
[2018-08-28] MEDS: ACETAMINOPHEN 325 MG TABLET PO PRN (21:24)
--- NOTE | 2018-08-28 21:30 | NUR ---
Fever Patient states he feels like he spiked a fever. Temp 102.1. PRN tylenol given and cooling measures done. After one hour, temp was 98.7.
--- NOTE | 2018-08-28 22:30 | NUR ---
Dr. Rodas at bedside.
[2018-08-28 23:09] VITALS: BP_SYST 130
--- NOTE | 2018-08-29 00:30 | NUR ---
Pain Patient complain of pain 10/10 to abdomen. PRN pain medication given. Patient tolerated well. No other needs at this time. Call light with the patient. Safety precautions in place.
[2018-08-29] MEDS: NACL 0.9% 1,000 ML IV SCH ×2 (00:32→08:21)
[2018-08-29] MEDS: OXYCODONE/ACETAMINOPHEN *10*mg/325 mg TABLET PO PRN ×3 (00:33→08:28)
--- NOTE | 2018-08-29 02:30 | NUR ---
Sleeping No signs of distress noted. Breathing is even and unlabored. Safety precautions in place.
[2018-08-29] MEDS: PIPERACILLIN/TAZO 3.375/DEX-IS 50 ML IV SCH ×4 (02:55→21:00)
--- NOTE | 2018-08-29 04:37 | NUR ---
Pain Patient complain of pain to abdomen. PRN pain medication given. Education provided. No other needs. Call light with the patient. Safety precautions in place.
[2018-08-29 06:25] LABS: BASOPHILS % (AUTO) 0.4 % (0.0-2.0); EOSINOPHILS # (AUTO) 0.4 K/uL (0.0-0.4); EOSINOPHILS % (AUTO) 3.9 % (0.0-4.0); HEMOGLOBIN 13.8 g/dL (14.0-18.0); LYMPHOCYTES # (AUTO) 1.2 K/uL (1.0-5.5); LYMPHOCYTES % (AUTO) 13.4 % (20.5-51.5); MEAN CORPUSCULAR HEMOGLOBIN 34 pg (27-31); MEAN CORPUSCULAR HGB CONC 34 % (32-36); MEAN CORPUSCULAR VOLUME 98 fL (79.0-98.0); MONOCYTES # (AUTO) 0.8 K/uL (0.0-1.0); MONOCYTES % (AUTO) 8.6 % (1.7-9.3); NEUTROPHILS # (AUTO) 6.8 K/uL (1.8-7.7); NEUTROPHILS % (AUTO) 73.7 % (40.0-70.0); PLATELET COUNT (AUTO) 284 K/uL (130-430); RED CELL DISTRIBUTION WIDTH 12.2 % (9.0-15.0); WHITE BLOOD COUNT (AUTO) 9.2 K/uL (4.8-10.8)
--- NOTE | 2018-08-29 06:42 | NUR ---
Closing notes Patient resting comfortably in bed, no signs of distress noted. Breathing is even and unlabored. IV patent and intact, infusing fluids. Dressing to abdomen is clean dry and intact x4. All needs met throughout the shift. Call light with patient, Safety precautions in place. Will endorse care to day shift RN.
--- NOTE | 2018-08-29 07:55 | NUR ---
INITIAL NOTE Received patient resting in bed at this time, no complaints of pain, temp of 98.6, afebrile, pt aaox4, verbal. No SOB noted, lung sounds clear, bowel sounds active. Educated patient on incentive spirometer use, pt to use at least 10 times an hour while awake, pt verbalized understanding, pt at 2000ml. On safety precautions, educated patient on the call light system, verbalized understanding. Bed alarm on, bed in lowest position, call light within reach. Will continue to monitor. Pt has an abd binder in place.
[2018-08-29 08:16] VITALS: BP_SYST 151
--- NOTE | 2018-08-29 09:15 | NUR ---
MD ROUNDS DR RENAE HOUSE, MADE AWARE THAT PT C/O ABD PAIN AND ON PAIN MEDICATIONS Q 4 HOURS PRN, MADE AWARE THAT PT HAS A COUGH WITH SPUTUM BUT LUNG SOUNDS CLEAR. PT C/O GAS PAIN AND ABD IS DISTENDED, NEW ORDERS GIVEN.
[2018-08-29] MEDS ORDERED: DIATR MEGLU/DIATRIZ SOD 30 ML SOLUTION PO ONE (09:37)
[2018-08-29 09:42] LABS: CALCIUM 8.7 mg/dL (8.4-11.0); CREATININE 1.05 mg/dL (0.55-1.30); POTASSIUM 3.7 mmol/L (3.5-5.1)
[2018-08-29 09:45] LABS: ALBUMIN 2.6 g/dL (3.4-4.8); TOTAL BILIRUBIN 0.9 mg/dL (0.0-1.0)
--- NOTE | 2018-08-29 10:45 | NUR ---
LOW TEMP PT HAS A TEMPERATURE OF 99.9, COOLING MEASURES IN PLACE. WILL CONTINUE TO MONITOR PT FOR ANY CHANGES. Addendum: 08/29/18 at 1154 by Trinh Knight RN TEMP CONTINUES TO BE 99.9, DR SJ HOUSE AND MADE AWARE, STATED TO CONTINUE COOLING MEASURES.
[2018-08-29 11:43] VITALS: BP_SYST 126
--- NOTE | 2018-08-29 11:47 | NUR ---
MD ROUNDS DR SJ HOUSE, AWARE OF PATIENT'S CONDITION, AWARE OF THE LOW GRADE TEMPS PT HAS BEEN HAVING. NO NEW ORDERS GIVEN.
--- NOTE | 2018-08-29 11:54 | NUR ---
DC PLANNING Received call from Cruzito @ [facility], ph [phone], updated on pt status.
--- NOTE | 2018-08-29 12:10 | NUR ---
ROUNDS PT IN BED, NO S/S OF DISTRESS OR SOB NOTED, PT HAS NO C/O PAIN AT THIS TIME, PT IN STABLE CONDITION, PT WATCHING TV, WILL CONTINUE TO MONITOR PT FOR ANY CHANGES, EDUCATED PT TO AMBULATE AND CONTINUE TO USE HIS INCENTIVE SPIROMETER, PT RETURN DEMONSTRATED AND IS AT 2000ML. PT VERBALIZED UNDERSTANDING.
--- NOTE | 2018-08-29 13:12 | NUR ---
CALL DR RENAE BRADSHAW, SPOKE WITH MD IN REGARDS TO THE RESULTS OF THE CT SCAN, PER TO PLACE PT ON NPO, CHANGED PAIN MEDICATION AND ORDERED NEW IV FLUIDS. Addendum: 08/29/18 at 1313 by Trinh Knight RN PER HE SPOKE WITH DR MONIKA CASTILLO AND DISCUSSED WITH HIM THE RESULTS OF THE CT SCAN
[2018-08-29] MEDS ORDERED: HYDROmorphone 1 MG INJ. 1 MG/ML AMPUL IVP PRN ×2 (13:15→15:30)
[2018-08-29] MEDS: D5NS 1,000 ML IV SCH (13:22)
--- NOTE | 2018-08-29 14:03 | NUR ---
IV RE-INSERTION: Changed IV site from right ac to left arm, gauge 20. Successful after one attempt. Resumed current IVF as ordered. Will observe for any signs of infiltration. Aseptic technique used. Removed iv catheter from right ac, catheter intact, no active bleeding noted, dressing in place.
--- NOTE | 2018-08-29 14:10 | NUR ---
ROUNDS PT IN BED, NO S/S OF DISTRESS OR SOB NOTED, PT HAS NO C/O PAIN AT THIS TIME, PT IN STABLE CONDITION, PT WATCHING TV, WILL CONTINUE TO MONITOR PT FOR ANY CHANGES.
--- NOTE | 2018-08-29 15:27 | NUR ---
MD [facility], AWARE OF PATIENT'S CONDITION, WENT TO SEE PT AND DISCUSSED HIS POC WITH HIM, PER SURGEON WILL BE COMING IN TONIGHT TO SPEAK TO PT ABOUT CT SCAN RESULTS. Addendum: 08/29/18 at 1654 by Trinh Knight RN MADE AWARE THAT PT HAS FEVER ON AND OFF AND PER OK TO GIVE TYLENOL PO FOR FEVER WITH SIP OF WATER
[2018-08-29] MEDS: ACETAMINOPHEN 325 MG TABLET PO PRN (16:52)
--- NOTE | 2018-08-29 16:52 | NUR ---
FEVER PT HAS A FEVER OF 101, COOLING MEASURES IN PLACE AND TYLENOL PRN ADMINISTERED, WILL CONTINUE TO MONITOR PT FOR ANY CHANGES.
[2018-08-29] MEDS: HYDROmorphone 2 MG/ML VIAL IVP PRN (17:27)
[2018-08-29 17:32] VITALS: BP_SYST 124
--- NOTE | 2018-08-29 18:51 | NUR ---
CLOSING NOTE patient resting in bed at this time, no complaints of pain, temp of 98.6, afebrile, pt aaox4, verbal. No SOB noted, lung sounds clear, bowel sounds active. Educated patient on incentive spirometer use, pt to use at least 10 times an hour while awake, pt verbalized understanding, pt at 2000ml despite continuous use. On safety precautions, educated patient on the call light system, verbalized understanding. Bed alarm on, bed in lowest position, call light within reach. Will endorse care of pt to incoming shift. Pt has an abd binder in place.
[2018-08-29 19:05] VITALS: BP_SYST 115
--- NOTE | 2018-08-29 19:05 | NUR ---
OPENING NOTE RECEIVED ENDORSEMENT REPORT FROM DAY NURSE HERNANDEZ AT BEDSIDE. PT IS AOX4. NO SOB NOTED. NO DISTRESS NOTED. CHEST RISE EVEN AND UNLABORED. NO S/S OF PAIN NOTED. PT DENIES PAIN AT THIS TIME. IV CLEAN, DRY, PATENT AND INTACT. INCISION SITE CLEAN, DRY AND INTACT. ORIENTED PT TO HOSPITAL ROOM AND HOW TO USE ROOM PHONE AND CALL LIGHT TO CALL FOR ASSISTANCE. PT VERBALIZED UNDERSTANDING. SAFETY MEASURES IN PLACE. CALL LIGHT/ROOM PHONE WITHIN REACH, BED ALARM ON, BED WHEELS LOCKED, BED IN LOWEST POSITION, BED WHEELS LOCKED, SIDE RAILS UP X3, BEDSIDE TABLE WITHIN REACH. NO OTHER NEEDS AT THIS TIME. WILL CONTINUE TO MONITOR PT AND CONTINUE PT'S POC.
--- NOTE | 2018-08-29 21:20 | NUR ---
RN ROUNDS PT RESTING IN BED. NO SOB NOTED. NO DISTRESS NOTED. CHEST RISE EVEN AND UNLABORED. NO S/S OF PAIN NOTED. PT DENIES PAIN AT THIS TIME. VITAL SIGNS WNL. IVF INFUSING AT ORDERED RATE. SAFETY MEASURES IN PLACE. NO OTHER NEEDS AT THIS TIME. WILL CONTINUE TO MONITOR PT AND CONTINUE PT'S POC.
--- NOTE | 2018-08-29 22:10 | NUR ---
MED PASS PT RESTING IN BED. NO SOB NOTED. NO DISTRESS NOTED. CHEST RISE EVEN AND UNLABORED. NO S/S OF PAIN NOTED. PT DENIES PAIN AT THIS TIME. IVF INFUSING AT ORDERED RATE. PRN TYLENOL ADMINISTERED FOR FEVER. NO OTHER NEEDS AT THIS TIME. SAFETY MEASURES IN PLACE. WILL CONTINUE TO MONITOR PT AND CONTINUE PT'S POC.
[2018-08-29 23:31] VITALS: BP_SYST 122
--- NOTE | 2018-08-30 | NUR ---
RN ROUNDS PT RESTING IN BED WITH EYES CLOSED. NO SOB NOTED. NO DISTRESS NOTED. CHEST RISE EVEN AND UNLABORED. NO S/S OF PAIN NOTED. IVF INFUSING AT ORDERED RATE. SAFETY MEASURES IN PLACE. NO NEEDS AT THIS TIME. WILL CONTINUE TO MONITOR PT AND CONTINUE PT'S POC.
[2018-08-30] MEDS: HYDROmorphone 2 MG/ML VIAL IVP PRN ×6 (02:30→23:05)
[2018-08-30] MEDS: D5NS 1,000 ML IV SCH ×2 (02:39→15:34)
[2018-08-30] MEDS: PIPERACILLIN/TAZO 3.375/DEX-IS 50 ML IV SCH ×2 (03:54→09:03)
--- NOTE | 2018-08-30 06:28 | NUR ---
Administered dilaudid IVP as ordered for pain.
--- NOTE | 2018-08-30 06:46 | NUR ---
CLOSING NOTE PT RESTING IN BED. NO SOB NOTED. NO DISTRESS NOTED. CHEST RISE EVEN AND UNLABORED. NO S/S OF PAIN NOTED. PT DENIES PAIN AT THIS TIME. IV CLEAN, DRY, PATENT AND INTACT. INCISION SITE CLEAN, DRY AND INTACT. PAIN MANAGED THROUGHOUT SHIFT. ALL SCHEDULED MEDICATIONS ADMINISTERED ORDERED. ALL NEEDS MET THROUGHOUT SHIFT. SAFETY MEASURES IN PLACE THROUGHOUT SHIFT. NO NEEDS AT THIS TIME. WILL CONTINUE TO MONITOR. WILL ENDORSE PT CARE TO DAY NURSE.
--- NOTE | 2018-08-30 07:30 | NUR ---
Opening note Patient resting in bed at this time, no complaints of pain, temp of 98.8. No SOB noted, lung sounds clear, bowel sounds active. Educated patient on incentive spirometer use, and reason for use, and how often to use, patient verbalized understanding, return demonstration by patient, result of 2000 ml inspired. Educated patient to ambulate in the hallway, patient states he has been ambulating in the room. Patient maintaining NPO status a this time. On safety precautions, educated patient on the call light system, verbalized understanding, Bed in lowest position, call light within reach. Will continue to monitor.
[2018-08-30 08:10] VITALS: BP_SYST 150
--- NOTE | 2018-08-30 09:20 | NUR ---
Paged Dr. Rodas regarding patient concerns with plan of care.
--- NOTE | 2018-08-30 09:47 | NUR ---
Dr. Rodas rounds ordered for HIDA scan today, will be at 1300 today, patient is okay to start and continue full liquid diet and okay to have pain medication, Dr. Rodas confirmed this with vtc technician, primary nurse Iván MALDONADO informed.
--- NOTE | 2018-08-30 11:00 | NUR ---
Pain Patient complained of abdominal pain, PRN medication given as ordered, effective. No adverse reaction noted. Patient resting comfortably.
[2018-08-30 12:18] VITALS: BP_SYST 125
--- NOTE | 2018-08-30 13:00 | NUR ---
Ambulating Patient ambulated in the hallway from room to [facility] hallway to outside of cafeteria , and back to room. Tolerating well, no dizziness noted.
--- NOTE | 2018-08-30 14:00 | NUR ---
Dr. Velasquez rounds Patient seen by Dr. Velasquez, patient complained of loose BMx1, patient on full liquid diet. New order for Flagyl and Rocephin per MD noted and carried out.
--- NOTE | 2018-08-30 14:16 | NUR ---
Case mgt: Pt has HIDA scan ordered by surgeon-pt has been febrile--diet advanced to full liq PO--
[2018-08-30] MEDS: metroNIDAZOLE 500 mg/NS 100 ML IV SCH ×2 (15:34→23:05)
[2018-08-30 16:10] VITALS: BP_SYST 157
--- NOTE | 2018-08-30 16:40 | NUR ---
Hida scan Patient left unit, went to Hida scan in stable condition.
--- NOTE | 2018-08-30 18:00 | NUR ---
Patient back on the unit from HIDA scan, stable condition.
[2018-08-30] MEDS: cefTRIAXone 1 GM in D5W 50 ML IV SCH (18:43)
[2018-08-30 19:05] VITALS: BP_SYST 118
--- NOTE | 2018-08-30 19:15 | NUR ---
OPENING NOTE RECEIVED ENDORSEMENT REPORT FROM DAY NURSE SILVIA/SINAN AT BEDSIDE. PT IS AOX4. NO SOB NOTED. NO DISTRESS NOTED. CHEST RISE EVEN AND UNLABORED. NO S/S OF PAIN NOTED. PT DENIES PAIN AT THIS TIME. IV CLEAN, DRY, PATENT AND INTACT. INCISION SITE CLEAN, DRY AND INTACT. ORIENTED PT TO HOSPITAL ROOM AND HOW TO USE ROOM PHONE AND CALL LIGHT TO CALL FOR ASSISTANCE. PT VERBALIZED UNDERSTANDING. SAFETY MEASURES IN PLACE. CALL LIGHT/ROOM PHONE WITHIN REACH, BED ALARM ON, BED WHEELS LOCKED, BED IN LOWEST POSITION, BED WHEELS LOCKED, SIDE RAILS UP X3, BEDSIDE TABLE WITHIN REACH. NO OTHER NEEDS AT THIS TIME. WILL CONTINUE TO MONITOR PT AND CONTINUE PT'S POC.
[2018-08-30] MEDS: ACETAMINOPHEN 325 MG TABLET PO PRN (19:44)
--- NOTE | 2018-08-30 20:10 | NUR ---
RN ROUNDS PT RESTING IN BED. NO SOB NOTED. NO DISTRESS NOTED. CHEST RISE EVEN AND UNLABORED. NO S/S OF PAIN NOTED. PT DENIES PAIN AT THIS TIME. VITAL SIGNS WNL. IVF INFUSING AT ORDERED RATE. SURGICAL DRESSING CLEAN, DRY AND INTACT. SAFETY MEASURES IN PLACE. NO OTHER NEEDS AT THIS TIME. WILL CONTINUE TO MONITOR PT AND CONTINUE PT'S POC.
[2018-08-31 00:24] VITALS: BP_SYST 119
[2018-08-31] MEDS: HYDROmorphone 2 MG/ML VIAL IVP PRN ×5 (03:57→20:26)
--- NOTE | 2018-08-31 04:00 | NUR ---
[place] PT REPORTS 9/10 ABD PAIN PRN DILAUDID ADMINISTERED ORDERED FOR SEVERE PAIN. PT TOLERATED WELL. NO OTHER NEEDS AT THIS TIME. SAFETY MEASURES IN PLACE. WILL CONTINUE TO MONITOR PT.
[2018-08-31] MEDS: metroNIDAZOLE 500 mg/NS 100 ML IV SCH ×3 (05:27→21:26)
[2018-08-31] MEDS: D5NS 1,000 ML IV SCH ×2 (05:27→20:26)
--- NOTE | 2018-08-31 07:35 | NUR ---
OPENING NOTE Patient resting in the bed. No acute distress. AAO x 4. Stated "the pain still there but not bad now, will ask for pain med when needs it". Skin warm and dry to touch. IV intact to LFA, no redness, no swelling, no drainage. On D5 NS at 75ml/hr, infusing well. Discussed the safety issue, use call light when needs help, and plan of care, verbally understanding. Safety measure maintained. Bed locked in low position, side rails up. Call light within reached. Will continue to monitor.
[2018-08-31 08:00] VITALS: BP_SYST 129
--- NOTE | 2018-08-31 08:38 | NUR ---
SEEN AND EXAMINED BY WING WILHELM WITH ORDER TO CHANGE SOFT DIET Dr. Dinero assessed patient at bedside, answered and explained question to patient, verbally understanding.
--- NOTE | 2018-08-31 10:17 | NUR ---
SEEN AND EXAMINED BY BAY CHAPPELL.
[2018-08-31] MEDS ORDERED: HYDROcodone/ACETAMIN 10-325 MG TAB PO PRN (10:30)
--- NOTE | 2018-08-31 11:50 | NUR ---
AMBULATED IN THE HALLWAY IN STEADY GAIT.
--- NOTE | 2018-08-31 12:10 | NUR ---
DILAUDID GIVEN Patient c/o pain after ambulation in the hallway. Dilaudid 2mg IVP given as ordered. No acute distress. Safety measure maintained. Bed locked in low position, side rails up. Refused bed alarm, risk and benefit explained, verbally understanding. Call light within reached. Continue to monitor.
[2018-08-31 12:14] VITALS: BP_SYST 118
--- NOTE | 2018-08-31 13:20 | NUR ---
Dietitian Recommendations * Recommend continuing soft (low fiber/bland) diet LP, RD Please refer to Nutrition Assessment for details.
--- NOTE | 2018-08-31 14:42 | NUR ---
SISTER AT BEDSIDE Patient resting in the bed. No acute distress. IV antibiotic hang at this time. Sister at bedside. Safety measure maintained. Bed locked in low position, side rails up. Call light within reached. Continue to monitor.
[2018-08-31] MEDS: cefTRIAXone 1 GM in D5W 50 ML IV SCH (15:55)
[2018-08-31 16:03] VITALS: BP_SYST 125
--- NOTE | 2018-08-31 16:28 | NUR ---
DILAUDID GIVEN Patient c/o abdomen pain 11/04. Dilaudid 2mg IVP given as ordered. No acute distress. Safety measure maintained. Bed locked in low position, side rails up. Sister at bedside. Call light within reached. Continue to monitor.
--- NOTE | 2018-08-31 18:35 | NUR ---
PATIENT OFF UNIT TO LOBBY WITH VISITORS Patient ambulated in steady gait to the front lobby with visitors.
--- NOTE | 2018-08-31 18:55 | NUR ---
CLOSING NOTE Patient still sitting in the lobby with families. No acute distress. IV intact, IVF infusing well. All needs met. Pain med given as needed. Safety measure maintained. Will endorse to night nurse.
--- NOTE | 2018-08-31 19:10 | NUR ---
OPENING NOTES Late entry due to patient care. Bedside report received from dayshift nurse. Patient received lying in bed, AOx4, no s/s of acute distress. Patient states that he is comfortable at this time. Breathing even and unlabored. IVF infusing well. IV site shows no signs of infiltration or infection. HOB slightly raised. Abdominal binder attached. Call light with patient. Will continue to monitor.
[2018-08-31 20:00] VITALS: BP_SYST 135
--- NOTE | 2018-08-31 21:00 | NUR ---
ROUNDS Patient in bed, watching TV. No signs of discomfort noted. Chest rise and fall even bilaterally. IVF infusing well. Call light with patient. Will continue to monitor.
--- NOTE | 2018-08-31 23:00 | NUR ---
ROUNDS Patient sleeping at this time. No signs of discomfort noted. Chest rise and fall even bilaterally. IVF infusing well. Call light with patient. Will continue to monitor.
--- NOTE | 2018-09-01 00:35 | NUR ---
PAIN Patient complained of abdominal pain. Dilaudid to be administered per PRN order. Will continue to monitor and reassess.
[2018-09-01 00:37] VITALS: BP_SYST 116
[2018-09-01] MEDS: HYDROmorphone 2 MG/ML VIAL IVP PRN ×2 (00:39→04:37)
--- NOTE | 2018-09-01 02:30 | NUR ---
ROUNDS Patient in bed sleeping at this time. No s/s of acute distress noted. Breathing even and unlabored. IVF infusing well. Call light with patient. Will continue to monitor.
--- NOTE | 2018-09-01 04:30 | NUR ---
PAIN Patient complains of 8/10 abdominal pain. PRN medication to be administered. Will continue to monitor and reassess.
[2018-09-01] MEDS: metroNIDAZOLE 500 mg/NS 100 ML IV SCH ×2 (05:12→13:03)
--- NOTE | 2018-09-01 06:42 | NUR ---
CLOSING NOTES Patient in bed sleeping at this time. No s/s of acute distress noted. Breathing is even and unlabored. IVF infusing well. IV site is patent, no signs of infiltration or infection noted. Abdominal binder attached. No signs of active bleeding noted. Skin warm and dry to touch. All needs met throughout shift. Fall and safety precautions maintained throughout shift. Will continue to monitor until patient care is endorsed to oncoming day shift nurse.
--- NOTE | 2018-09-01 07:34 | NUR ---
OPENING NOTE Patient resting in the bed. No acute distress. AAO x 4. No c/o pain at this time. Skin warm and dry to touch. IV intact to LFA, no redness, no swelling, no drainage. On D5 NS at 75ml/hr, infusing well. Abdomen lap incision sites x 4 intact with clean and dry dressing, no bleeding, no drainage noted. Discussed the safety issue, use call light when needs help, and plan of care, verbally understanding. Safety measure maintained. Bed locked in low position, side rails up. Refused bed alarm, risk and benefit explained, verbally understanding. Call light within reached. Will continue to monitor.
[2018-09-01 07:50] VITALS: BP_SYST 107
--- NOTE | 2018-09-01 08:55 | NUR ---
SEEN AND EXAMINED BY BAY CHAPPELL.
--- NOTE | 2018-09-01 09:08 | NUR ---
NORCO GIVEN Patient c/o abdomen pain 09/04, [place] 10/325mg PO given as ordered. No acute distress. Safety measure maintained. Call light within reached. Bed locked in low position, side rails up. Continue to monitor
--- NOTE | 2018-09-01 10:43 | NUR ---
WATCHING TV Patient resting in the bed and watching TV. No acute distress. Safety measure maintained. Bed locked in low position, side rails up. Call light within reached. Continue to monitor.
--- NOTE | 2018-09-01 12:15 | NUR ---
LUNCH Patient tolerated lunch well, consumed 100% of the meal. Safety measure maintained. Call light within reached. Bed locked in low position, side rails up. Continue to monitor.
[2018-09-01 12:31] VITALS: BP_SYST 123
[2018-09-01 13:00] VITALS: BP_SYST 123
[2018-09-01] MEDS: cefTRIAXone 1 GM in D5W 50 ML IV SCH (14:11)
--- NOTE | 2018-09-01 14:45 | NUR ---
RESTING Patient resting in the bed comfortable. No acute distress. No c/o pain. Skin warm and dry to touch. Safety measure maintained. Call light within reached. Bed locked in low position, side rails up. Continue to monitor.
--- NOTE | 2018-09-01 15:02 | NUR ---
PAGED PAGED SAVITA MOSQUEDA AT [phone] SPOKE WITH GENNY.
--- NOTE | 2018-09-01 15:32 | NUR ---
OKAY TO DISCHARGE WITH DR. DINERO, WING Received the call back from Dr. Dinero, informed to Dr. Dinero, patient tolerated soft diet well. And per Dr. Thompson may discharge patient if okay from surgeon. Dr. Dinero stated "that's fine, just discharge patient today". Asked if okay to change incision dressing. Dr. Dinero stated " you change the dressing and the patient can shower at home".
--- NOTE | 2018-09-01 15:50 | NUR ---
SEEN AND EXAMINED BY STEVE GALAVIZ.
[2018-09-01 16:41] VITALS: BP_SYST 121
[2018-09-01 16:43] VITALS: BP_SYST 99
--- NOTE | 2018-09-01 17:20 | NUR ---
INCISION DRESSING CHANGED Educated and instructed patient how to change incision dressing. Lap sites x 4 intact with sterile stripe, no bleeding noted. Instructed patient not to wet the dressing when shower and may protected by covering plastic bag, verbally understanding. Follow up appointment with Dr. Dinero in one week, verbally understanding and stated will call on Tuesday. Phone number given.
== END 2018-09-01 17:35 | disposition home or self-care (01) | DRG 854 ==
LOC: SED 09:18 → SMU 11:34
PROVIDERS: ADMIT Internal Medicine Hospice and Palliative Medicine; ATTEND Internal Medicine Hospice and Palliative Medicine
PROC: 0FT44ZZ Resection of Gallbladder, Percutaneous Endoscopic Approach (ICD-10-PCS; principal; 2018-08-26 09:00)
DX: A41.9 Sepsis, unspecified organism (principal); F11.20 Opioid dependence, uncomplicated; K82.1 Hydrops of gallbladder; K80.00 Calculus of gallbladder with acute cholecystitis without obstruction
CPT/HCPCS: 36415; 71045; 78226; 80053; 81000-TC; 82150-TC; 83605; 83690-TC; 85025; 85610-TC; 86886; 86900; 86901; 87040-TC; 87081; 87086; 88304; 94010; 96361; 96374; 96375; 99285; A9537; C1727; J0696; J1170; J1885; J2001; J2060; J2250; J2270; J2370; J2405; J2543; J2704; J3010; J3490; J7030; J7042; J7060; J7120; Q9964

== ENCOUNTER 2022-01-20 21:29 | Emergency (ER) | payer OTHER ==
[~2022-01-20] VITALS: Ht 182.9 cm; Wt 106.6 kg
[2022-01-20 21:36] VITALS: BP_SYST 140
--- NOTE | 2022-01-20 21:39 | NUR ---
PT HERE FOR CHEST PAIN AND PALPITATIONS ON AND OFF SINCE YESTERDAY. PER PT SUDDEN ONSET, NO RADIATING AND NON PROVOKE. PT DENIES N/V, DENIES ANY NUMBNESS AND TINGLING SENSATION. PMH:DENIES PT AAOX4, NO SOB NOTED AND NAD. PT AMBULATED WITH STEADY GAIT TO RM 6, PENDING MD MCKEON. REPORT GIVEN TO ROXY MALDONADO
--- NOTE | 2022-01-20 21:55 | NUR ---
Pt from home with c/o palipations since yesterday evening, reports feeling like heart is skipping a beat. Prior to this he reports having chest pain but it has subsided. Pt is A&O x4, ambulatory, and following commands. VSS. Safety precautions in place and connected to monitor.
--- NOTE | 2022-01-20 22:30 | NUR ---
Pt relaxing in bed, denies pain at this time. VSS. Requested MD for MSE. Safety precautions in place and connected to monitor.
--- NOTE | 2022-01-20 23:00 | NUR ---
Dr. Chahal at bedside with patient for evaluation.
[2022-01-20 23:45] LABS: BASOPHILS # (AUTO) 0.1 K/uL (0.0-0.2); BASOPHILS % (AUTO) 1.4 % (0.0-2.0); EOSINOPHILS # (AUTO) 0.3 K/uL (0.0-0.4); EOSINOPHILS % (AUTO) 4.6 % (0.0-4.0); HEMOGLOBIN 14.1 g/dL (14.0-18.0); LYMPHOCYTES # (AUTO) 1.6 K/uL (1.0-5.5); LYMPHOCYTES % (AUTO) 25.4 % (20.5-51.5); MEAN CORPUSCULAR HEMOGLOBIN 34 pg (27-31); MEAN CORPUSCULAR HGB CONC 35 % (32-36); MEAN CORPUSCULAR VOLUME 97 fL (79.0-98.0); MONOCYTES # (AUTO) 0.4 K/uL (0.0-1.0); MONOCYTES % (AUTO) 6.3 % (1.7-9.3); NEUTROPHILS % (AUTO) 62.3 % (40.0-70.0); PLATELET COUNT (AUTO) 275 K/uL (130-430); RED BLOOD CELL COUNT(AUTO) 4.14 MIL/uL (4.2-6.2); RED CELL DISTRIBUTION WIDTH 12.6 % (9.0-15.0); WHITE BLOOD COUNT (AUTO) 6.4 K/uL (4.8-10.8)
[2022-01-20 23:50] LABS: ANION GAP 7 (5-15); CALCIUM 9.5 mg/dL (8.4-11.0); CHLORIDE 103 mmol/L (98-107); CREATININE 0.87 mg/dL (0.55-1.30); GLUCOSE 107 mg/dL (70-99); POTASSIUM 3.9 mmol/L (3.5-5.1); UREA NITROGEN, BLOOD 18 mg/dL (8-21)
[2022-01-20 23:52] LABS: GFR AFRICAN AMERICAN 120 mL/min (>90)
[2022-01-21 00:07] LABS: ALANINE AMINOTRANSFERASE 23 U/L (12-78); ALBUMIN 3.6 g/dL (3.4-4.8); ASPARTATE AMINOTRANSFERASE 21 U/L (10-37); THYROID STIMULATING HORMONE 2.55 uIu/mL (0.36-3.74); TOTAL BILIRUBIN 0.2 mg/dL (0.0-1.0)
[2022-01-21 00:46] VITALS: BP_SYST 114
--- NOTE | 2022-01-21 00:46 | NUR ---
Patient given written and verbal discharge instructions and verbalizes understanding. ER Dr. Chahal discussed with patient the results and treatment provided. Patient in stable condition. ID arm band removed. Patient educated on pain management and to follow up with PMD. Pain Scale 0. Opportunity for questions provided and answered. Medication side effect fact sheet provided.
== END 2022-01-21 00:46 | disposition home or self-care (01) ==
LOC: SED 21:29
DX: R00.2 Palpitations (principal); F17.200 Nicotine dependence, unspecified, uncomplicated; Z79.899 Other long term (current) drug therapy
CPT/HCPCS: 36415; 71045; 80053; 83880; 84443; 84484; 85025; 93005; 99285